=== PATIENT | male | born 1985 | race Caucasian/White ===

== ENCOUNTER 2020-10-11 08:25 | Outpatient (CLI) | payer OTHER | END 2020-10-11 08:26 | disposition home or self-care (01) | LOC: TBSIIMAG 08:25 | PROVIDERS: ATTEND Family Medicine | DX: S89.92XD Unspecified injury of left lower leg, subsequent encounter (principal); M25.462 Effusion, left knee; M22.8X2 Other disorders of patella, left knee; Z98.890 Other specified postprocedural states ==

== ENCOUNTER 2020-12-31 08:26 | Outpatient (CLI) | payer OTHER ==
[2020-12-31 09:55] LABS: #Basophils 0.1 10x3/uL (0.0-0.2); #Eosinphils 0.2 10x3/uL (0.0-0.5); #Monocytes 0.6 10x3/uL (0.0-1.1); #Neutrophils 3.3 10x3/uL (1.5-8.4); %Basophils 1.3 % (0.0-2.0); %Eosinophils 3.5 % (0.0-6.0); %Lymphocytes 22.9 % (18.0-47.0); %Monocytes 10.4 % (0.0-10.0); %Neutrophils 61.7 % (40.0-75.0); Hemoglobin 13.6 g/dL (13.5-17.5); Mean Corpuscular HGB CONC 33.3 g/dL (32.0-36.0); Mean Corpuscular Hemoglobin 27.5 pg (27.0-33.0); Mean Corpuscular Volume 82.6 fl (81.2-95.1); Platelet Count 252 10x3/uL (150-450); Red Blood Cell (RBC) Count 4.94 10x6/uL (4.32-5.72); White Blood Cell (WBC) Count 5.4 10x3/uL (3.5-10.5)
== END 2020-12-31 08:27 | disposition home or self-care (01) ==
LOC: LABBT 08:26
PROVIDERS: ATTEND Orthopaedic Surgery
DX: Z01.812 Encounter for preprocedural laboratory examination (principal); S83.242A Other tear of medial meniscus, current injury, left knee, initial encounter; S83.282A Other tear of lateral meniscus, current injury, left knee, initial encounter; M23.42 Loose body in knee, left knee
CPT/HCPCS: 85025